=== PATIENT | male | born 1960 | race Asian ===

== ENCOUNTER 2017-08-13 14:01 | Emergency (ER) | payer MEDICAID ==
[~2017-08-13] VITALS: Ht 165.1 cm; Wt 52.7 kg
[2017-08-13 14:05] VITALS: Ht 165.1 cm; Wt 52.7 kg
[2017-08-13 15:16] VITALS: BP 120/76
== END 2017-08-13 15:16 | disposition home or self-care (01) ==
LOC: ED 14:01
DX: S61.217A Laceration without foreign body of left little finger without damage to nail, initial encounter (principal); W25.XXXA Contact with sharp glass, initial encounter; Y93.89 Activity, other specified; Y92.89 Other specified places as the place of occurrence of the external cause; Y99.8 Other external cause status
CPT/HCPCS: 90715; J2001; J3490; Q0092